=== PATIENT | female | born 1990 | race Caucasian/White ===

== ENCOUNTER → 2021-07-17 10:52 | Outpatient (CLI) | payer OTHER, SELFPAY ==
[2021-07-17 19:55] LABS: Hemoglobin A1C% w Est Avg Glu 4.6 % (4.0-6.0)
[2021-07-17 20:01] LABS: Basophils Absolute Auto 0 /uL (0-100); Basophils Percent Auto 0.4 % (0-2); Eosinophils Absolute Auto 200 /uL (0-450); Eosinophils Percent Auto 2.1 % (2-4); Hematocrit 39.3 % (36-46); Lymphocytes Absolute Auto 1500 /uL (1100-4500); Lymphocytes Percent Auto 17.7 % (25-40); Mean Corpuscular Hemoglobin 31.5 PG (26-34); Mean Corpuscular Volume 95.3 fL (80-100); Monocytes Absolute Auto 500 /uL (0-900); Monocytes Percent Auto 5.7 % (3-14); Neutrophils Absolute Auto 6400 /uL (1500-7000); Neutrophils Percent Auto 74.1 % (50-75); Red Blood Cell Count 4.12 X10^6/uL (4.0-5.2); Red Cell Distribution Width 12.8 % (11.6-14.8); White Blood Cell Count 8.7 X10^3/uL (4.5-11.0)
[2021-07-17 20:22] LABS: Add Manual Diff / Slide Review SLIDE REVIEW
[2021-07-17 21:52] LABS: Platelet Estimate Adequate on smear; RBC Morphology Normal Morphology
[2021-07-18 14:50] LABS: Hepatitis B Surface Antigen NEGATIVE s/c (NEGATIVE); Rubella Antibody IgG 4.5 IU/mL (>15)
[2021-07-18 15:09] LABS: HIV 1 & 2 Ab/Ag 4th Gen Combo NEGATIVE (NEGATIVE); Hep C Virus Ab w/Reflex Quant NEGATIVE s/c (NEGATIVE)
== END ==
DX: Z11.3 Encounter for screening for infections with a predominantly sexual mode of transmission (principal); Z11.59 Encounter for screening for other viral diseases; Z34.81 Encounter for supervision of other normal pregnancy, first trimester; Z86.39 Personal history of other endocrine, nutritional and metabolic disease
CPT/HCPCS: 83036; 85025; 86762; 86803; 86850; 86900; 86901; 87086; 87340; 87389

== ENCOUNTER → 2022-12-24 11:05 | Outpatient (CLI) | payer OTHER, MEDICAID, SELFPAY | PROVIDERS: PCP Physician Assistant Medical; Visit Provider Physician Assistant | DX: R19.7 Diarrhea, unspecified (principal); M54.9 Dorsalgia, unspecified; Z30.9 Encounter for contraceptive management, unspecified | CPT/HCPCS: 87045; 87177; 87493; 87899 ==

== ENCOUNTER → 2023-12-13 09:53 | Outpatient (CLI) | payer OTHER, MEDICAID, SELFPAY ==
[2023-12-13 19:18] LABS: Add Manual Diff / Slide Review NO; Basophils Absolute Auto 0 /uL (0-100); Basophils Percent Auto 0.4 % (0-2); Eosinophils Absolute Auto 200 /uL (0-450); Eosinophils Percent Auto 3.6 % (2-4); Hematocrit 43.6 % (36-46); Hemoglobin 14.8 g/dL (12.0-16.0); Lymphocytes Absolute Auto 1400 /uL (1100-4500); Lymphocytes Percent Auto 22.4 % (25-40); Mean Corpuscular Hemoglobin 31.1 PG (26-34); Mean Corpuscular Volume 91.4 fL (80-100); Monocytes Absolute Auto 400 /uL (0-900); Monocytes Percent Auto 6.1 % (3-14); Neutrophils Absolute Auto 4400 /uL (1500-7000); Neutrophils Percent Auto 67.5 % (50-75); Red Blood Cell Count 4.77 X10^6/uL (4.0-5.2); Red Cell Distribution Width 12.1 % (11.6-14.8); White Blood Cell Count 6.5 X10^3/uL (4.5-11.0)
[2023-12-13 19:22] LABS: Vitamin D 25 Hydroxy (D3) 29.8 ng/mL (30.0-100.0)
[2023-12-13 19:29] LABS: HEMOLYSIS < 15 (0-50); Iron 101 ug/dL (37-170)
[2023-12-13 19:31] LABS: Alanine Aminotransferase 25 IU/L (<35); Albumin 4.6 g/dL (3.5-5.0); Albumin Globulin Ratio 1.4 (1.0-2.8); Alkaline Phosphatase 65 U/L (38-126); Aspartate Aminotransferase 29 IU/L (14-36); BUN Creatinine Ratio 15.5 (6-22); Bilirubin Total 0.7 mg/dL (0.2-1.3); Blood Urea Nitrogen 11 mg/dL (7-17); Calcium 9.6 mg/dL (8.4-10.2); Carbon Dioxide 26 mmol/L (22-32); Chloride 106 mmol/L (98-107); Estimated Glomerular Filt Rate > 60 mL/min (>60); Globulin 3.2 g/dL (1.7-4.1); Glucose 87 mg/dL (70-100); HEMOLYSIS < 15 (0-50); Potassium 4.5 mmol/L (3.4-5.1); Sodium 140 mmol/L (137-145); Total Protein 7.8 g/dL (6.3-8.2)
[2023-12-13 19:38] LABS: Percent Iron Saturation 38 % (15-50); Total Iron Binding Capacity 265 ug/dL (265-497); Transferrin 214 mg/dL (206-381)
[2023-12-13 19:47] LABS: HCG Quantitative /Beta subunit < 2.4 mIU/mL
[2023-12-13 20:00] LABS: TSH w/ Reflex to FT4 0.89 uIU/mL (0.47-4.68)
[2023-12-13 20:05] LABS: Ferritin 115 ng/mL (6-137)
[2023-12-13 20:20] LABS: Vitamin B12 302 pg/mL (239-931)
== END ==
PROVIDERS: PCP Physician Assistant Medical; Visit Provider Family Medicine
DX: Z39.1 Encounter for care and examination of lactating mother (principal); F41.9 Anxiety disorder, unspecified; R53.83 Other fatigue; N91.2 Amenorrhea, unspecified
CPT/HCPCS: 80053; 82306; 82607; 82728; 83540; 83550; 84443; 84702; 85025

== ENCOUNTER → 2024-05-03 10:25 | Outpatient (CLI) | payer OTHER, MEDICAID, SELFPAY ==
[2024-05-03 20:42] LABS: Free T4, Direct Thyroxine 0.96 ng/dL (0.78-2.19); Hemoglobin A1C% w Est Avg Glu 4.9 % (4.0-6.0)
[2024-05-03 20:55] LABS: Thyroid Stimulating Hormone 1.96 uIU/mL (0.47-4.68)
[2024-05-05 07:36] LABS: Thyroid Peroxidase Antibodies 27 IU/mL (0-34)
[2024-05-05 17:39] LABS: Anti Thyroglobulin Antibody <1.0 IU/mL (0.0-0.9)
[2024-05-10 12:36] LABS: Triiodothyronine T3 Reverse 13.6 ng/dL (.)
== END ==
PROVIDERS: Naturopath; PCP Physician Assistant Medical
DX: R53.82 Chronic fatigue, unspecified (principal); F41.8 Other specified anxiety disorders; G47.00 Insomnia, unspecified; E34.9 Endocrine disorder, unspecified; T38.5X5A Adverse effect of other estrogens and progestogens, initial encounter; F33.9 Major depressive disorder, recurrent, unspecified; R45.1 Restlessness and agitation
CPT/HCPCS: 83036; 83498; 84144; 84439; 84443; 84481; 84482; 86376; 86800

== ENCOUNTER → 2025-04-16 10:28 | Outpatient (CLI) | payer OTHER, SELFPAY ==
--- NOTE | 2025-04-16 10:30 | DI.US.S_ITS ---
PROCEDURE: US OB <= 14 WEEKS FETUS INDICATIONS: DATING OUTSIDE/PRIOR DATING DATA: Last menstrual period (LMP): 02/07/25. LMP-based estimated date of delivery (CHARITY): 11/14/25. First dating scan (date and location): Current study. Estimated date of delivery (CHARITY) from first dating scan: 11/14/25. TECHNIQUE: Real-time scanning was performed of the fetus and maternal pelvic organs, with image documentation. COMPARISON: None. FINDINGS: An intrauterine is present including a single pole with an average crown-rump length of 28.4 mm corresponding to a nine week five day plus or minus six day gestation. There is detectable cardiac activity in the fetus at a rate of 173 beats per minute. A normal yolk sac is present. There is no subchorionic hemorrhage. The maternal uterus is anteverted. Masslike area in the anterior myometrium measuring 5.6 x 4.7 x 3.3 cm, likely a fibroid. The cervix is closed. There is no pathologic free pelvic fluid. There is a peripherally vascular corpus luteum on the left ovary. IMPRESSION: Single live intrauterine with a gestational age of nine weeks five days and sonographic CHARITY of 11/14/25. Incidental uterine fibroid. We strive to produce accurate, complete, and clear reports of imaging services. To assist us in improving patient care, this report was composed using standard report templates and voice recognition software. Therefore, it may contain abnormal punctuation, insertions and/or omissions. Occasional wrong-word or sound-alike substitutions may occur. Though we review the report and make efforts to correct it, we do recommend that the report be read carefully in proper context to recognize any text inaccuracies. Dictated by: Jennifer Rangel M.D. on 04/16/2025 at 16:53 Approved by: Jennifer Rangel M.D. on 04/16/2025 at 16:57
== END ==
LOC: US 10:29
PROVIDERS: PCP Family Medicine; Referring Provider Student in an Organized Health Care Education/Training Program; Visit Provider Student in an Organized Health Care Education/Training Program
DX: N91.2 Amenorrhea, unspecified (principal); D25.9 Leiomyoma of uterus, unspecified; N83.12 Corpus luteum cyst of left ovary; Z3A.09 9 weeks gestation of pregnancy
CPT/HCPCS: 76801